=== PATIENT | female | born 1930 | race Caucasian/White ===

== ENCOUNTER 2017-02-02 14:40 | Emergency (ER) | payer MEDICARE, OTHER ==
[2017-02-02 15:19] LABS: Bilirubin Negative (Negative); Blood, Urine Negative (Negative); Glucose, Urine (Dipstick) Negative (Negative); Ketone, Urine Negative (Negative); Nitrite Negative (Negative); Protein, Urine (Dipstick) Negative (Neg-Trace)
[2017-02-02 15:22] LABS: #Basophils 0.1 thou/uL (0.0-0.2); #Eosinphils 0.3 thou/uL (0.0-0.7); #Lymphocytes 4.6 thou/uL (1.20-3.40); %Basophils 0.7 % (0.0-1.0); %Eosinophils 2.2 % (0.0-10.0); %Lymphocytes 38.3 % (21.0-51.0); %Monocytes 8.4 % (0.0-10.0); Hematocrit 44.5 % (36.0-47.0); Mean Platelet Volume 7.4 fL (7.4-10.4); Red Blood Cell (RBC) Count 4.47 mill/uL (4.20-5.40)
[2017-02-02 15:39] LABS: ALT (SGPT) 19 U/L (8-55); AST (SGOT) 26 U/L (5-34); Alkaline Phosphatase 75 U/L (40-150); Anion Gap 15 mmol/L (10-20); BUN (Urea Nitrogen) 16 mg/dL (9.8-20.1); CK (CPK) 36 U/L (29-168); Calc. Creatinine Clearance 0 mL/min (70-130); Carbon Dioxide 17 mmol/L (23-31); Chloride 109 mmol/L (98-107); Estimated GFR-MDRD 60; Globulin 3.3 g/dL (2.4-3.5); Protein, Total 6.8 g/dL (6.0-8.3)
[2017-02-02 15:57] LABS: Troponin I Less than 0.010 ng/mL (< 0.028)
--- NOTE | 2017-02-02 16:18 | CT ---
HEAD CT NONCONTRAST: Date: 02/02/17 INDICATION: Fall with head injury. FINDINGS: There is moderate chronic microvascular ischemic disease. Age-related parenchymal volume loss with co mpensatory dilatation of the ventricular system present. No intracranial hemorrhage, mass effect, or midline shift. Mild mucosal thickening of the paranasal sinuses. IMPRESSION: 1. No acute intracranial hemorrhage or mass effect. 2. Moderate chronic microvascular ischemic disease. POS: [facility]
--- NOTE | 2017-02-02 16:22 | CT ---
CERVICAL SPINE CT NONCONTRAST: Date: 02/02/17 CLINICAL HISTORY: Fall with neck injury and pain. FINDINGS: Craniocervical junction is intact. There is no compression fracture or significant subluxation. No ev idence of craniocervical distraction injury. There is patient motion which does distort imaging anato my and thus limit assessment. IMPRESSION: 1. No definite acute osseous abnormality of the cervical spine. 2. Incidental note of heterogeneity of the right thyroid lobe. [facility]. POS: [facility]
--- NOTE | 2017-02-02 16:23 | RAD ---
FRONTAL VIEW CHEST: Date: 02/02/17 INDICATION: Altered mental status, fall. COMPARISON: 04/14/15. FINDINGS: No consolidation, effusion, or pneumothorax. Cardiomediastinal silhouette is accentuated by slight pa tient rotation and portable technique. IMPRESSION: Stable chest. No consolidation identified. POS: [facility]
--- NOTE | 2017-02-02 16:41 | RAD ---
2 VIEWS RIGHT HIP: Date: 02/02/17 COMPARISON: None. HISTORY: Fall. FINDINGS: The bones are demineralized. No displaced fracture or evidence of dislocation is seen. IMPRESSION: No acute osseous abnormality. POS: [facility]
--- NOTE | 2017-02-02 16:45 | CT ---
CT FACIAL BONES: Date: 02/02/17 HISTORY: Fall, trauma, pain TECHNIQUE: Serial axial CT imaging at 2.5 mm intervals through the facial bones without contrast. Coronal and sa gittal reformatted imaging obtained. FINDINGS: The nasal bones appear intact. There is no fracture of the zygomatic arch or pterygoid plates on eith er side. The sphenoid sinus on the right is completely opacified and demonstrates prominent wall thickening wi th internal secretions demonstrating calcification. When compared to a head CT performed 02/12/16, th is is a stable finding, suggesting chronic sinusitis of the right sphenoid sinus. There is mild soft tissue swelling inferior and lateral to the left orbit, as well as along the super ior and lateral aspect of the left orbit. There is a rim calcified structure in the supraclinoid region on the left measuring approximately 1.2 cm in AP dimension, unchanged when compared to studies dating back to 12/21/05. This suggests an int racranial aneurysm. There is degenerative change involving the temporomandibular joints, particularly on the right, the r ight temporomandibular joint demonstrating prominent joint space narrowing, subchondral sclerosis, an d osteophyte formation, as well as small interarticular loose bodies. There is no acute fracture of t he mandible. The orbital floor and the medial orbital wall appears intact bilaterally. IMPRESSION: Numerous incidental findings as detailed above. No acute maxillofacial fracture or evidence of disloc ation. POS: [facility]
--- NOTE | 2017-02-02 16:48 | RAD ---
FRONTAL RADIOGRAPH OF PELVIS: Date: 02/02/17 COMPARISON: 12/09/05. HISTORY: Fall. FINDINGS: A metallic structure overlies the lower lumbar spine suggesting a metal weigher. Neither hip is dislocated. Pelvic ring is intact with no widening of the sacroiliac joints or pubic symphysis. No acute fracatu re. IMPRESSION: Incidental findings as above. No acute fracture or evidence of dislocation seen. POS: [facility]
[2017-02-02] MEDS ORDERED: Adacel (T-DAP) 0.5 ML VIAL ONE (18:00)
--- NOTE | 2017-02-22 10:43 | EKG ---
Test Reason : Blood Pressure : / mmHG Vent. Rate : 066 BPM Atrial Rate : 066 BPM P-R Int : 166 ms QRS Dur : 066 ms QT Int : 444 ms P-R-T Axes : 031 020 051 degrees QTc Int : 465 ms Normal sinus rhythm Normal ECG Confirmed by VIRGEN GARCIA M.D. ([id number]), production editor ZI MAY ([id number]) on 02/22/2017 10:42:50 AM Referred By: Confirmed By:VIRGEN GARCIA M.D.
== END 2017-02-02 18:21 | disposition home or self-care (01) ==
LOC: ERS 14:40
DX: S05.12XA Contusion of eyeball and orbital tissues, left eye, initial encounter (principal); F10.129 Alcohol abuse with intoxication, unspecified; E07.9 Disorder of thyroid, unspecified; I10 Essential (primary) hypertension; F41.9 Anxiety disorder, unspecified; F17.210 Nicotine dependence, cigarettes, uncomplicated; Z79.899 Other long term (current) drug therapy
CPT/HCPCS: 36415; 51701; 70450; 70486; 71010; 72125; 72170; 80053; 80307; 81003; 82550; 82553; 84484; 85025; 90471; 90715; 93005; 94760; A4353

== ENCOUNTER 2017-06-20 13:58 | Emergency (ER) | payer MEDICARE, OTHER ==
--- NOTE | 2017-06-20 14:53 | CT ---
CT HEAD NONCONTRAST: History: Fall. Head injury. FINDINGS: There is no evidence of acute intracranial hemorrhage or infarct. Ventricles appear normal in size, s hape, and position. Diffuse cortical atrophy and chronic ischemic small vessel disease are again demo nstrated. There is prominent calcification in the arterial structures. A large well circumscribed scalp hematoma over the right frontal calvarium measures up to 4.1 cm. No underlying skull fracture. IMPRESSION: 1. No acute intracranial abnormalities are demonstrated. POS: [facility]
--- NOTE | 2017-06-20 14:57 | CT ---
CT FACE NONCONTRAST: History: Fall. Head injury. FINDINGS: The mandible, globes, and zygomatic arches are intact. A small amount of fluid is noted within the le ft axillary sinus. Chronic inflammation and ostitis of the right sphenoid sinus is again demonstrated . Nasal septum is midline. Right frontal scalp hematoma is not visualized on this exam. No displaced fractures. Prominent degenerative changes involve the right temporomandibular joint. IMPRESSION: Chronic type findings are stable. No acute osseous abnormalities of the face are demonstrated. POS: [facility]
== END 2017-06-20 15:16 ==
LOC: ERS 13:58
DX: S00.03XA Contusion of scalp, initial encounter (principal); I10 Essential (primary) hypertension; F41.9 Anxiety disorder, unspecified; F17.210 Nicotine dependence, cigarettes, uncomplicated; Z79.82 Long term (current) use of aspirin; Z79.899 Other long term (current) drug therapy; W19.XXXA Unspecified fall, initial encounter
CPT/HCPCS: 70450; 70486

== ENCOUNTER 2018-03-19 21:58 | Inpatient (IN) | payer MEDICARE, OTHER ==
[~2018-03-19 21:58] MED LIST: ISOVUE-370 76%-LOCM 1 ML ONE
[2018-03-19 22:26] LABS: #Basophils 0.1 thou/uL (0.0-0.2); #Eosinphils 0.3 thou/uL (0.0-0.7); #Lymphocytes 3.3 thou/uL (1.20-3.40); #Neutrophils 6.4 thou/uL (1.40-6.50); %Basophils 0.9 % (0.0-1.0); %Eosinophils 2.4 % (0.0-10.0); %Lymphocytes 29.9 % (21.0-51.0); %Monocytes 9.3 % (0.0-10.0); %Neutrophils 57.5 % (42.0-75.0); Hemoglobin 14.4 g/dL (12.0-16.0); Mean Corpuscular HGB CONC 31.5 g/dL (32.0-36.0); Mean Corpuscular Hemoglobin 30.5 pg (27.0-31.0); Mean Corpuscular Volume 96.7 fL (78.0-98.0); Mean Platelet Volume 7.4 fL (7.4-10.4); Platelet Count 249 thou/uL (130-400); RBC Distribution Width 12.8 % (11.5-14.5); Red Blood Cell (RBC) Count 4.73 mill/uL (4.20-5.40); White Blood Cell (WBC) Count 11.2 thou/uL (4.8-10.8)
[2018-03-19 22:37] LABS: ALT (SGPT) 18 U/L (8-55); AST (SGOT) 22 U/L (5-34); Albumin 3.2 g/dL (3.4-4.8); Alkaline Phosphatase 99 U/L (40-150); Anion Gap 14 mmol/L (10-20); BUN (Urea Nitrogen) 21 mg/dL (9.8-20.1); Bilirubin, Total 0.9 mg/dL (0.2-1.2); CK (CPK) 27 U/L (29-168); Calc. Creatinine Clearance 0 mL/min (70-130); Calcium 8.8 mg/dL (7.8-10.44); Carbon Dioxide 20 mmol/L (23-31); Chloride 107 mmol/L (98-107); Estimated GFR-MDRD 52; Globulin 3.7 g/dL (2.4-3.5); Glucose 117 mg/dL (83-110); PTT 25.4 SEC (22.9-36.1); Potassium 3.8 mmol/L (3.5-5.1); Protein, Total 6.9 g/dL (6.0-8.3); Prothrombin Time 13.6 SEC (12.0-14.7); Sodium 137 mmol/L (136-145)
[2018-03-19 22:41] LABS: CKMB 0.6 ng/mL (0-6.6); Troponin I 0.137 ng/mL (< 0.028)
--- NOTE | 2018-03-19 23:23 | CT ---
CT OF THE HEAD WITHOUT CONTRAST: 03/19/18 COMPARISON: 06/20/17 HISTORY: Left sided facial droop and weakness, slurred speech. TECHNIQUE: Axial CT imaging at 5 mm intervals from vertex through skull base without contrast. FINDINGS: The imaged paranasal sinuses and mastoid air cells are well aerated. 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 There is extensive periventricular, deep, and subcortical white matter hypodensity, evidence of small vessel disease. No intracranial hemorrhage, midline shift or mass effect. No acute osseous abnormality is seen. IMPRESSION: No intracranial hemorrhage. Prominent small vessel disease. Results were called to Dr. Marcelo at approximately 10:09 p.m., 03/19/18. Code CR POS: [facility]
[2018-03-19] MEDS ORDERED: Aspirin 300 MG Suppository ONE (23:31)
--- NOTE | 2018-03-19 23:34 | PDOC.FPRHP ---
- History of Present Illness Chief Complaint: stroke alert History of Present Illness: 87 yo F w/ PMH HTN, CAD w/ 2 stents presented via EMS with daughter for sudden onset change in mental status, L sided weakness. Patient aphasic, responds to stimuli, does not follow commands. History obtained from daughter. Patient seemed normal with no complaints throughout the day then had sudden onset L sided weakness, speech deficit, after going to commode at about 21:40. Says patient started to have difficulty swallowing 3 weeks ago. This has progressively worsened, pt stopped taking all medications and solid foods 10 days ago. Mrs. Holland loves ensure with chocolate. At baseline Ms. Holland is able to walk with assist to toilet, blind. She has had gradual decline after deaths of family members over past 6 years, but especially over past year. October had significant decline in which she became combative with worsening confusion, dementia. Stopped smoking cigarettes and refused coffee which she previously enjoyed. ED Course: IN aspirin - Allergies/Adverse Reactions Allergies Allergy/AdvReac Type Severity Reaction Status Date / Time No Known Drug Allergies Allergy Verified 04/14/15 21:05 - Home Medications Medication Instructions Recorded Confirmed Type Aspirin [Aspirin Chewable Tablet] 81 mg PO DAILY 04/14/15 03/20/18 History Carvedilol 12.5 mg PO BID 04/14/15 03/20/18 History Pravastatin Sodium 40 mg PO HS 04/14/15 03/20/18 History Cyanocobalamin (Vitamin B-12) 5,000 mcg PO DAILY 03/20/18 03/20/18 History [Vitamin B-12] Ferrous Sulfate 325 mg PO DAILY 03/20/18 03/20/18 History - History PMHx: HTN, dementia, macular degeneration w/ blindness x20 years, CAD s/p stents x2 PSHx: colonoscopy w/perf requiring colon resection, stents, hysterectomy, back surgery, cataracts FHx: Lives with daughter at home Social: No current tobacco, alcohol, drug use. Previous smoker, stopped 11/11. - Review of Systems ROS unobtainable: due to mental status - Vital signs BP: 131/91 HR: 101 RR: 27 Tmax: 98.3 Pox: 90% on RA Wt: 53 kg - Physical Exam Constitutional: other (aphasic, does not follow commands, sleeping and snoring. Responds to stimulus.) HEENT: normocephalic and atraumatic Neck: supple, other (carotids difficult to auscultate 2/2 snoring) Heart: RRR, no murmurs/rubs/gallops, pulses present, no edema Lungs: CTAB (exam limited by snoring) Abdomen: soft, bowel sounds present, no masses/distention Musculoskeletal: normal structure (thin) Neurological: other (L sided facial droop, normal babinski, moves b/l feet and toes. R arm/hand resisted movement. No LUE movement seen.) Skin: no rash/lesions FMR H&P: Results - Labs Result Diagrams: 03/20/18 04:24 03/20/18 04:24 Lab results: WBC 11.2 thou/uL (4.8-10.8) H 03/19/18 22:10 Hgb 14.4 g/dL (12.0-16.0) 03/19/18 22:10 Hct 45.7 % (36.0-47.0) 03/19/18 22:10 MCV 96.7 fL (78.0-98.0) 03/19/18 22:10 Plt Count 249 thou/uL (130-400) 03/19/18 22:10 Neutrophils % 57.5 % (42.0-75.0) 03/19/18 22:10 Sodium 137 mmol/L (136-145) 03/19/18 22:10 Potassium 3.8 mmol/L (3.5-5.1) 03/19/18 22:10 Chloride 107 mmol/L (98-107) 03/19/18 22:10 Carbon Dioxide 20 mmol/L (23-31) L 03/19/18 22:10 BUN 21 mg/dL (9.8-20.1) H 03/19/18 22:10 Creatinine 1.01 mg/dL (0.6-1.1) 03/19/18 22:10 Glucose 117 mg/dL (83-110) H 03/19/18 22:10 Calcium 8.8 mg/dL (7.8-10.44) 03/19/18 22:10 Total Bilirubin 0.9 mg/dL (0.2-1.2) 03/19/18 22:10 AST 22 U/L (5-34) 03/19/18 22:10 ALT 18 U/L (8-55) 03/19/18 22:10 Alkaline Phosphatase 99 U/L (40-150) 03/19/18 22:10 Creatine Kinase 27 U/L (29-168) L 03/19/18 22:10 CK-MB (CK-2) 0.6 ng/mL (0-6.6) 03/19/18 22:10 Serum Total Protein 6.9 g/dL (6.0-8.3) 03/19/18 22:10 Albumin 3.2 g/dL (3.4-4.8) L 03/19/18 22:10 FMR H&P: A/P - Problem List (1) Acute thrombotic stroke Current Visit: Yes Status: Acute Code(s): [id number] - (2) Elevated troponin Current Visit: Yes Status: Acute Code(s): R74.8 - ABNORMAL LEVELS OF OTHER SERUM ENZYMES (3) HTN (hypertension) Current Visit: No Status: Acute Code(s): I10 - ESSENTIAL (PRIMARY) HYPERTENSION (4) Blindness of both eyes Current Visit: No Status: Chronic Code(s): H54.0 - BLINDNESS, BOTH EYES * DO NOT USE * (5) Dementia Current Visit: No Status: Suspected Code(s): F03.90 - UNSPECIFIED DEMENTIA WITHOUT BEHAVIORAL DISTURBANCE Qualifiers: Dementia type: Alzheimer's disease Alzheimer's disease onset: late-onset Dementia behavioral disturbance: without behavioral disturbance Qualified Code (s): G30.1 - Alzheimer's disease with late onset; F02.80 - Dementia in other diseases classified elsewhere without behavioral disturbance - Plan Acute Thrombotic Stroke - CT brain showed no intracranial hemorrhage, small vessel disease, L ICA aneurysm - CTA showed distal R ICA arterial thrombus w/ filling defect extending to R SHERIFFS. Thyroid nodule. - Risks include CAD s/p stents, previous tobacco abuse - Allow permissive HTN, BP 210/110. BP was 130 systolic in ED - IN aspirin. NPO pending speech evaluation. Plan to start statin after this. - Neuro checks, fall precautions - PT/OT/speech consults - Palliative care consult placed to assist with goals of care - Plan to consult neurology in am - MRI in am pending - echo pending - IVF, LR @ maintenance - Daughter MPOA to come in am. She has advanced directive paperwork. Indeterminate troponins, likely 2/2 demand - EKG NSR, no ST changes - 0.137->0.127. Will trend one more HTN - hold home BP med, allow permissive HTN CAD s/p stents - NPO, plan to start statin Blindness 2/2 macular degeneration Ppx: Lovenox Diet: NPO pending swallow eval Dispo: admit to inpatient stroke FMR H&P: Upper Level - Pertinent history 87 y/o F w/ PMHx of HLD, HTN, and prior CVA presents for evaluation of acute onset of L-sided weakness, facial droop, and slurred speech around 1730 earlier tonight. Pt lives at home w/ daughter who takes care of her. Per daughter, patient is able to get out of bed and ambulate to toilet w/ stand-by assist and is blind 2/2 macular degeneration at her baseline. Reports difficulty swallowing over the past 3 weeks. Daughter reports patient stopped taking her home meds about 10 days ago and reports significantly decreased PO intake 2/2 choking on solids/pills. Was taking some liquid. CT brain upon arrival to the ER negative for hemorrhagic stroke and CTA Head/Neck showing clot near the bifurcation of the internal and external carotid artery. Dr Blanca of Neurosurgery contacted by the ER and advised against tPA administration cv thrombus retrieval as patient is not a good candidate for either intervention. Pt received ASA in the ER. - Pertinent findings BP 129/96 P 102 RR 24 O2sat 92% on RA Weight [address] Brain WO - Prominent small vessel disease. No intracranial hemorrhage CTA- Head/Neck - WBC - 11.2 Hbg - 14.4 Plt - 249 Trop - .137 GEN: Frail, laying in bed, snoring, no acute distress HEENT: L-sided facial droop. No noted contusions. Normocephalic CARD: Tachycadic, no murmurs PULM: CTA-b/l, no wheezes or rhonci GI: BSx4, soft, no guarding NEURO: Pt aphasic, left sided facial droop, Minimal movement of L-UE, 2/5 strength L-LE. Unable to perform sensory exam - Plan Date/Time: 03/19/18 [id number] I, B. Kade cShultz MD, have evaluated this patient and agree with findings/plan as outlined by customer experience intern resident. Pertinent changes/additions are listed here. 87 y/o F w/: 1) Acute thrombotic stroke w/ clot noted at carotid artery bifurcation - Pt not a good candidate for tPA or retrieval per Dr. Blanca Neurosurgery - Thrombus identified at the bifurcation of the internal/external carotid artery , but with residual blood flow per discussion w/ Dr. Blanca by ERMD. Unsure at this time if this is stimulus for sxs or if part of this thrombus broke off and caused ischemia as her sxs appear to be more focal to the L-UE and face rather than gross L-sided deficits as would be expected for complete ischemia of the L- hemisphere. - Will obtain MRI brain w/wo for further eval of this in the AM - Will start patient on Aspirin and high intensity statin. NPO pending clearance by speech - IVF at [facility] - Neuro checks q4 hours w/ PT/OT consultation - Allow permissive HTN for the first 24 hours to aid w/ brain tissue reperfusion w/ PRN available if >220/110 - Will consult CM for placement vs palliative upon discharge home - Will admit to Stroke inpatient for further eval/work-up and consult Neuro in the AM - Will attempt to contact other daughter who is patient's Medical power of attorney recruiter - ECHO to eval for intracardiac thrombus as possible primary site of thrombus w / thrombus seen at bifurcation in elderly patient at high risk for atrial fibrillation 2) Indeterminate Trop likely 2/2 demand ischemia - Will trend trop x 3 - No evidence of acute myocardial ischemia seen on EKG - Likely 2/2 demand in setting of number 1 - ASA as noted above and high intensity statin - ECHO as noted above - Will consult Cards if trops cont. to trend upward 3) Other chronic problems per customer experience intern note Assessment and Plan Discussed w/ Dr. Tillman who is in agreement. Addendum - Attending - Attending Attestation Date/Time: 03/20/18 0028 I personally evaluated the patient and discussed the management with Dr. Beyer and Dr. Schultz I agree with the History, Examination, Assessment and Plan documented above with any addition or exceptions noted below. 87 yo female presented with left side weakness. Imaging confirmed thrombotic CVA. Will admit to stoke unit. Consult stroke team and case management. Continue secondary prevention. Neuro surg consulted from ER. Did not recommend TPA or other clot removing interventions. Jeannette
--- NOTE | 2018-03-19 23:52 | RAD ---
PORTABLE SEMIUPRIGHT FRONTAL CHEST RADIOGRAPH 03/19/18 COMPARISON: 02/02/17 HISTORY: Left sided weakness with spurred speech. FINDINGS: The heart and mediastinal contours are stable. No pneumothorax, pleural fluid, focal consolidation, o r alveolar edema. IMPRESSION: No acute findings. POS: [facility]
--- NOTE | 2018-03-20 00:37 | CT ---
CT ANGIOGRAM HEAD CT ANGIOGRAM NECK 03/19/18 COMPARISON: None. HISTORY: Left sided facial droop and weakness with slurred speech. TECHNIQUE: Axial CT imaging is obtained at 1.25 mm intervals from the vertex through the lung apices with IV con trast using a CT angiogram protocol. Coronal and sagittal 3D reformatted imaging obtained. FINDINGS: The visualized lung apices are unremarkable. The retroantral fat and the parapharyngeal fat is clear bilaterally. The parotid glands and the subma ndibular glands are unremarkable. No discrete aerodigestive tract lesion identified. There is a levi nant nodule in the right lobe of the thyroid gland measuring approximately 1.9 cm. Followup thyroid u ltrasound suggested. No lymphadenopathy is appreciated within the neck. There is a bovine arch noted. There is atherosclerotic calcification at the origin of the left subcla vian artery. There is no hemodynamically significant stenosis at the origin of the innominate artery, right subclavian artery, right vertebral artery, right common carotid artery, left common carotid a rtery, left subclavian artery, or left vertebral artery. On the basis of NASCET criteria there is no hemodynamically significant stenosis seen involving the c ommon carotid artery or the internal carotid artery on either side. The vertebral arteries are patent bilaterally. The basilar artery is patent. Bilateral posterior cerebral arteries are patent distally. Of note, there is clot within the posterio r communicating artery on the right. This is incontinuity with clot/thrombus within the distal ICA on the right just proximal to the bifurcation of the ICA, best seen on coronal image 53, axial image 20 5, and sagittal image 53. There is no clot seen extending into the M1 segment on the right and the di stal MCA branches appear grossly unremarkable. The A1 segment is patent bilaterally and distal LEONELA br anches are unremarkable. There is a saccular aneurysm measuring 1.3 cm emanating from the lateral asp ect of the left internal carotid artery involving the cavernous segment. Distal LEONELA and MCA branches appear unremarkable bilaterally. Review of the osseous structures demonstrates multilevel facet and uncovertebral osteophyte formation within the cervical spine. IMPRESSION: 1. Filling defect consistent with arterial thrombus within the distal right internal carotid art alonzo just proximal to the ICA terminus. This extends into the posterior communicating artery on the ri ght as well. 2. 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 3. Nodule within the right lobe of the thyroid gland for which followup thyroid ultrasound advi sed. Results discussed with Dr. Marcelo at 10:35 p.m., 03/19/18. Code CR POS: [facility]
[2018-03-20] MEDS: Lactated Ringer's 1,000 ML IV SCH ×2 (03:05→18:05)
[2018-03-20 03:31] VITALS: BMI 22.4
[2018-03-20 05:11] LABS: #Basophils 0.1 thou/uL (0.0-0.2); #Eosinphils 0.2 thou/uL (0.0-0.7); #Lymphocytes 3.2 thou/uL (1.20-3.40); #Neutrophils 7.4 thou/uL (1.40-6.50); %Basophils 0.5 % (0.0-1.0); %Eosinophils 1.8 % (0.0-10.0); %Lymphocytes 26.8 % (21.0-51.0); %Monocytes 8.6 % (0.0-10.0); %Neutrophils 62.2 % (42.0-75.0); Hemoglobin 14.2 g/dL (12.0-16.0); Mean Corpuscular HGB CONC 31.7 g/dL (32.0-36.0); Mean Corpuscular Hemoglobin 30.8 pg (27.0-31.0); Mean Corpuscular Volume 96.9 fL (78.0-98.0); Mean Platelet Volume 7.5 fL (7.4-10.4); Platelet Count 257 thou/uL (130-400); RBC Distribution Width 12.8 % (11.5-14.5); White Blood Cell (WBC) Count 11.9 thou/uL (4.8-10.8)
[2018-03-20 05:36] LABS: Anion Gap 14 mmol/L (10-20); BUN (Urea Nitrogen) 19 mg/dL (9.8-20.1); Calc. Creatinine Clearance 34 mL/min (70-130); Calcium 9.4 mg/dL (7.8-10.44); Carbon Dioxide 22 mmol/L (23-31); Cardiac Risk 2.9 (Less than 4.5); Chloride 104 mmol/L (98-107); Cholesterol 110 mg/dl (< 200 Desired); Estimated GFR-MDRD 52; Glucose 107 mg/dL (83-110); HDL Cholesterol 38 mg/dL (>60 Neg Risk); LDL Cholesterol, Calculated 55 mg/dL; Potassium 3.6 mmol/L (3.5-5.1); Sodium 136 mmol/L (136-145); Triglycerides 85 mg/dL (Less than 150)
[2018-03-20 05:54] LABS: CKMB 0.9 ng/mL (0-6.6)
--- NOTE | 2018-03-20 06:59 | PDOC.FM ---
- Subjective Subjective: NAEO. Patient resting in bed, currently getting TTE. Daughter at the bedside. States her mother has rested most of the night. Notes she has declined steadily since October. She states she does not feel she would be able to take her mother home to care for her after this event. Patient resting in bed and not able to answer questions. Daughter states her sister is coming later this AM and she is MPOA, she is bringing paperwork. - Objective MAR Reviewed: Yes Vital Signs & Weight: Vital Signs (12 hours) Temp Pulse Resp BP 03/20/18 02:23 98.0 F 95 16 126/95 H Weight Weight 55.792 kg Result Diagrams: 03/20/18 04:24 03/20/18 04:24 Phys Exam - Physical Examination Constitutional: NAD resting on bed, lethargic, responds to painful stimuli follows commands, but minimally HEENT: moist MMs, sclera anicteric Respiratory: clear to auscultation bilateral Cardiovascular: RRR Gastrointestinal: soft, non-tender unable to fully assess due to patient cooperation spontaneously moved RLE Deviation from normal: incomprehensible sounds Dx/Plan (1) Acute thrombotic stroke Code(s): [id number] - Status: Acute (2) Elevated troponin Code(s): R74.8 - ABNORMAL LEVELS OF OTHER SERUM ENZYMES Status: Acute (3) Alcohol abuse Code(s): F10.10 - ALCOHOL ABUSE, UNCOMPLICATED Status: Acute (4) Altered mental state Code(s): R41.82 - ALTERED MENTAL STATUS, UNSPECIFIED Status: Acute (5) HTN (hypertension) Code(s): I10 - ESSENTIAL (PRIMARY) HYPERTENSION Status: Acute (6) Blindness of both eyes Code(s): H54.0 - BLINDNESS, BOTH EYES * DO NOT USE * Status: Chronic (7) Dementia Code(s): F03.90 - UNSPECIFIED DEMENTIA WITHOUT BEHAVIORAL DISTURBANCE Status: Suspected Qualifiers: Dementia type: Alzheimer's disease Alzheimer's disease onset: late-onset Dementia behavioral disturbance: without behavioral disturbance Qualified Code (s): G30.1 - Alzheimer's disease with late onset; F02.80 - Dementia in other diseases classified elsewhere without behavioral disturbance - Plan Plan: Acute Thrombotic Stroke - CT brain showed no intracranial hemorrhage, small vessel disease, L ICA aneurysm - CTA showed distal R ICA arterial thrombus w/ filling defect extending to R PLUMBING INSPECTOR. Thyroid nodule. - Risks include CAD s/p stents, previous tobacco abuse - Allow permissive HTN, BP 210/110. BP was 130 systolic in ED - [place] aspirin. NPO pending speech evaluation. Plan to start statin after this. - Neuro checks, fall precautions - PT/OT/speech consults - Palliative care consult placed to assist with goals of care; CM consulted for discharge planning - Plan to consult neurology in am - MRI in am pending - echo pending - IVF, LR @ maintenance - Daughter MPOA to come in am. She has advanced directive paperwork. Indeterminate troponins, likely 2/2 demand - EKG NSR, no ST changes - 0.137->0.127-> 0.134 HTN - hold home BP med, allow permissive HTN CAD s/p stents - NPO, plan to start statin Blindness 2/2 macular degeneration Ppx: Lovenox Diet: NPO pending swallow eval Dispo: admit to inpatient stroke Addendum - Attending - Attending Attestation Date/Time: 03/20/18 [id number] I personally evaluated the patient and discussed the management with Dr. Brown. TUSHAR 02/28, LLE 0/ I agree with the History, Examination, Assessment and Plan documented above with any addition or exceptions noted below. Acute ischemic stroke-confirmed by MRI-patient has had steady decline per daughters report. on pr aspirin. PT/OT/ST. Will see how patient progresses over the next 24-48 hours and continue to dialogue with children about plan. They decline PEG tube for sure and are thinking placement in NH as most suitable plan of care. Permissive HTN
[2018-03-20] MEDS: Enoxaparin Sodium 40 MG/0.4 ML SYRINGE SC SCH (09:30)
[2018-03-20] MEDS: Aspirin 300 MG Suppository PR SCH (09:30)
[2018-03-20] MEDS ORDERED: Acetaminophen 500 MG TAB PO PRN (13:14)
[2018-03-20] MEDS ORDERED: Haloperidol Lactate 5 MG/ML VIAL SLOW IVP PRN (13:48)
--- NOTE | 2018-03-20 15:34 | MRI ---
BRAIN MRI WITHOUT CONTRAST: INDICATION: History of stroke with left side weakness and facial droop. Slurred speech. FINDINGS: Patient motion is present degrading image quality. There is acute right COATER OPERATOR distribution moderate-sized infarction which involves the occipital lobe inf erior and medial right temporal lobe and the right thalamus. There is also punctate restriction invo lving the left paramedian yadiel, areas of restriction of the left cerebral hemisphere in a watershed d istribution, and a few are seen within the left cerebellar hemisphere. There is severe chronic ische denis disease involving cerebral white matter. There is encephalomalacia of the inferolateral right ce rebellar hemisphere in addition to multifocal bilateral lacunar infarctions of the cerebellar hemisph eres. There is dolichoectasia of each visualized terminal ICA as evidenced by enlargement of the sheila w voids. [place] intraarticular lenses are absent. There is abnormal opacification of the right melissa r sphenoid air cell. Mild mucosal thickening is otherwise seen within the paranasal sinuses. IMPRESSION: 1. Moderate-sized acute right COATER OPERATOR distribution infarction. 2. Additional punctate foci of restricted diffusion which may relate to tiny recent infarcts from hy poperfusion or embolic phenomenon. 3. Additional details are described above. POS: TPC
[2018-03-21 04:57] LABS: #Basophils 0.1 thou/uL (0.0-0.2); #Eosinphils 0.2 thou/uL (0.0-0.7); #Lymphocytes 2.7 thou/uL (1.20-3.40); #Monocytes 0.9 thou/uL (0.11-0.59); #Neutrophils 6.4 thou/uL (1.40-6.50); %Basophils 0.6 % (0.0-1.0); %Eosinophils 2.1 % (0.0-10.0); %Lymphocytes 26.8 % (21.0-51.0); %Monocytes 8.4 % (0.0-10.0); %Neutrophils 62.1 % (42.0-75.0); Mean Corpuscular HGB CONC 31.9 g/dL (32.0-36.0); Mean Corpuscular Hemoglobin 30.3 pg (27.0-31.0); Mean Platelet Volume 7.9 fL (7.4-10.4); Platelet Count 253 thou/uL (130-400); RBC Distribution Width 12.8 % (11.5-14.5); Red Blood Cell (RBC) Count 4.64 mill/uL (4.20-5.40); White Blood Cell (WBC) Count 10.2 thou/uL (4.8-10.8)
[2018-03-21] MEDS: Lactated Ringer's 1,000 ML IV SCH (04:57)
[2018-03-21 05:10] LABS: Anion Gap 16 mmol/L (10-20); BUN (Urea Nitrogen) 13 mg/dL (9.8-20.1); Calc. Creatinine Clearance 38 mL/min (70-130); Carbon Dioxide 21 mmol/L (23-31); Chloride 106 mmol/L (98-107); Estimated GFR-MDRD 60; Glucose 90 mg/dL (83-110); Potassium 3.8 mmol/L (3.5-5.1); Sodium 139 mmol/L (136-145)
--- NOTE | 2018-03-21 06:11 | PDOC.FM ---
- Subjective Subjective: NAEO. Patient resting comfortably in bed. No family at the bedside. Patient makes incomprehensible sounds but unable to answer questions appropriately. - Objective MAR Reviewed: Yes Vital Signs & Weight: Vital Signs (12 hours) Temp Pulse Resp BP Pulse Ox 03/21/18 04:00 98.7 F 83 19 97 03/21/18 03:26 158/100 H 03/21/18 03:25 168/112 H 03/21/18 00:00 98.4 F 89 19 138/98 H 97 03/20/18 20:00 98.6 F 102 H 20 141/78 H 97 Weight Admit Weight 55.792 kg Weight 55.792 kg I&O: 03/19/18 03/20/18 03/21/18 06:59 06:59 06:59 Intake Total 1868 Output Total 550 Balance 1318 Result Diagrams: 03/21/18 04:15 03/21/18 04:15 Phys Exam - Physical Examination Constitutional: NAD HEENT: PERRLA, moist MMs, sclera anicteric Neck: supple, full ROM Respiratory: clear to auscultation bilateral Cardiovascular: RRR Gastrointestinal: soft, non-tender, no distention, positive bowel sounds Musculoskeletal: no edema left sided weakness, follows commands, incomprehensible sounds Dx/Plan (1) Acute thrombotic stroke Code(s): [id number] - Status: Acute (2) Elevated troponin Code(s): R74.8 - ABNORMAL LEVELS OF OTHER SERUM ENZYMES Status: Acute (3) Alcohol abuse Code(s): F10.10 - ALCOHOL ABUSE, UNCOMPLICATED Status: Acute (4) Altered mental state Code(s): R41.82 - ALTERED MENTAL STATUS, UNSPECIFIED Status: Acute (5) HTN (hypertension) Code(s): I10 - ESSENTIAL (PRIMARY) HYPERTENSION Status: Acute (6) Blindness of both eyes Code(s): H54.0 - BLINDNESS, BOTH EYES * DO NOT USE * Status: Chronic (7) Dementia Code(s): F03.90 - UNSPECIFIED DEMENTIA WITHOUT BEHAVIORAL DISTURBANCE Status: Suspected Qualifiers: Dementia type: Alzheimer's disease Alzheimer's disease onset: late-onset Dementia behavioral disturbance: without behavioral disturbance Qualified Code (s): G30.1 - Alzheimer's disease with late onset; F02.80 - Dementia in other diseases classified elsewhere without behavioral disturbance - Plan Plan: Acute Thrombotic Stroke - CT brain showed no intracranial hemorrhage, small vessel disease, L ICA aneurysm - CTA showed distal R ICA arterial thrombus w/ filling defect extending to R PATROL MAN. Thyroid nodule. - Risks include CAD s/p stents, previous tobacco abuse - Allow permissive HTN, BP 210/110. BP was 130 systolic in ED - AR aspirin. Speech consulted and appreciate recommendations. - Neuro checks, fall precautions - PT/OT/speech consults - MRI showing infarct affecting right PATROL MAN - Echo: EF 55-60%, grade 1/3 diastolic dysfunction; mitral annular calcification , mild MR, aortic valve sclerosis, mild TR, small pericardial effusion w/out tamponade - Palliative care consult placed to assist with goals of care- after discussion family decided to make patient DNR and a referral has been placed for [facility]. Family has decided to pursue comfort measures. - Neurology consulted - no intervention at this time. Appreciate recommendataions. Indeterminate troponins, likely 2/2 demand - EKG NSR, no ST changes - 0.137->0.127-> 0.134 HTN - hold home BP med, permissive HTN period allowed CAD s/p stents - will discuss statin therapy with family Blindness 2/2 macular degeneration Ppx: Lovenox Dispo: discharge within 1-2 days Addendum - Attending - Attending Attestation Date/Time: 03/21/182049 I personally evaluated the patient and discussed the management with Dr. Brown I agree with the History, Examination, Assessment and Plan documented above with any addition or exceptions noted below. Acute ischemic stroke- family on board with DNR and comfort measures. Hospice consulted.
[2018-03-21] MEDS: Enoxaparin Sodium 40 MG/0.4 ML SYRINGE SC SCH (09:55)
[2018-03-21] MEDS: Aspirin 300 MG Suppository PR SCH (09:55)
--- NOTE | 2018-03-21 10:24 | CON ---
DATE OF CONSULTATION: 03/21/2018 TYPE OF CONSULTATION: Neurology. CONSULT PHYSICIAN: Family Medicine Service. IMPRESSION: 1. Right posterior cerebral artery stroke. 2. Moderately advanced dementia. PLAN: Hospice care. HISTORY OF PRESENT ILLNESS: Ms. Holland is an 87-year-old white female, who lives at home with the assistance of her daughter. She has had progressive dementia for several years. She is still able to eat, drink, and walk with assistance. She had an acute neurologic change, where there was some weakness that developed on the left side and what the daughter describes as a stiffening of her extremities. Following this, she was brought to the emergency room for evaluation. She has since had an MRI of the brain, which showed extensive small vessel ischemic changes as well as a fairly large area of infarct involving the right temporal and occipital lobe. The patient reportedly will awake and if stimulated and becomes agitated. She is otherwise been stable from a cardiovascular perspective. She had a living will that she did not want any type of feeding tube. PAST MEDICAL HISTORY: Hypertension, hyperlipidemia, and cerebral aneurysm. ALLERGIES: NONE REPORTED. SOCIAL HISTORY: No tobacco or alcohol. MEDICATIONS: Medication list was reviewed. FAMILY HISTORY: Noncontributory. REVIEW OF SYSTEMS: Not obtainable due to her current state. PHYSICAL EXAMINATION: VITAL SIGNS: Blood pressure 135/99, pulse 88, respirations 16, and temperature 97.4. HEENT: Pupils equal. Conjunctivae clear. NECK: Supple. No lymphadenopathy. EXTREMITIES: No cyanosis, clubbing, or edema. NEUROLOGIC: She is quite lethargic, but will arouse to stimulation. She does not follow commands. There is no obvious focal changes as far as muscular tone. No abnormal movements were seen. LABORATORY STUDIES: Glucoses have been running around 100. CBC shows a white blood cell count 10.2 and hemoglobin 14.0. Echocardiogram showed an ejection fraction of 55% to 60%. MRI images were reviewed. CT angiogram showed an occlusion of the distal right ICA and posterior communicator artery. SUMMARY: This is an elderly lady with dementia and a fairly large infarct. Family wishes for comfort measures. I agree with your current care. Job ID: [id number]
--- NOTE | 2018-03-21 23:03 | EKG ---
Test Reason : Blood Pressure : / mmHG Vent. Rate : 092 BPM Atrial Rate : 092 BPM P-R Int : 156 ms QRS Dur : 058 ms QT Int : 386 ms P-R-T Axes : 073 021 051 degrees QTc Int : 477 ms Normal sinus rhythm Nonspecific ST abnormality Abnormal ECG Confirmed by DEBBIE LAWRENCE, SWATHI ([id number]), scientific publications editor ZI MAY ([id number]) on 03/21/2018 11:03:15 PM Referred By: Confirmed By:SWATHI LEWIS MD
--- NOTE | 2018-03-22 06:10 | PDOC.FM ---
- Subjective Subjective: NAEO. Patient resting in bed. Patient is making incomprehensible sounds, but is able to answer questions somewhat appropriately. She does endorse some back and hip pain. She is not alert or oriented. She denies any other pain. - Objective MAR Reviewed: Yes Vital Signs & Weight: Vital Signs (12 hours) Temp Pulse Resp BP Pulse Ox 03/22/18 04:00 99.6 F 90 20 142/96 H 93 L 03/21/18 19:30 97.7 F 93 18 135/90 94 L Weight Admit Weight 55.792 kg Weight 55.792 kg I&O: 03/20/18 03/21/18 03/22/18 06:59 06:59 06:59 Intake Total 1868 Output Total 550 250 Balance 1318 -250 Result Diagrams: 03/21/18 04:15 03/21/18 04:15 Phys Exam - Physical Examination elderly female Neck: supple Respiratory: no wheezing Cardiovascular: RRR Gastrointestinal: soft, non-tender, no distention, positive bowel sounds Musculoskeletal: no edema Left sided weakness remains; right sided strength intact Deviation from normal: incomprehensible sounds, able to follow some commands and answer questions Dx/Plan (1) Acute thrombotic stroke Code(s): [id number] - Status: Acute (2) Elevated troponin Code(s): R74.8 - ABNORMAL LEVELS OF OTHER SERUM ENZYMES Status: Acute (3) Alcohol abuse Code(s): F10.10 - ALCOHOL ABUSE, UNCOMPLICATED Status: Acute (4) Altered mental state Code(s): R41.82 - ALTERED MENTAL STATUS, UNSPECIFIED Status: Acute (5) HTN (hypertension) Code(s): I10 - ESSENTIAL (PRIMARY) HYPERTENSION Status: Acute (6) Blindness of both eyes Code(s): H54.0 - BLINDNESS, BOTH EYES * DO NOT USE * Status: Chronic (7) Dementia Code(s): F03.90 - UNSPECIFIED DEMENTIA WITHOUT BEHAVIORAL DISTURBANCE Status: Suspected Qualifiers: Dementia type: Alzheimer's disease Alzheimer's disease onset: late-onset Dementia behavioral disturbance: without behavioral disturbance Qualified Code (s): G30.1 - Alzheimer's disease with late onset; F02.80 - Dementia in other diseases classified elsewhere without behavioral disturbance - Plan Plan: Acute Thrombotic Stroke - CT brain showed no intracranial hemorrhage, small vessel disease, L ICA aneurysm - CTA showed distal R ICA arterial thrombus w/ filling defect extending to R KEY ACCOUNT COORDINATOR. Thyroid nodule. - [place] aspirin. Speech consulted and appreciate recommendations. - Neuro checks, fall precautions - PT/OT/speech consults - MRI showing infarct affecting right KEY ACCOUNT COORDINATOR - Echo: EF 55-60%, grade 1/3 diastolic dysfunction; mitral annular calcification , mild MR, aortic valve sclerosis, mild TR, small pericardial effusion w/out tamponade - Palliative care consult placed to assist with goals of care- after discussion family decided to make patient DNR and a referral has been placed for [facility]. Family has decided to pursue comfort measures. Patient not a candidate for inpatient hospice. Family would like to do correction hospice. Will give one dose of morphine due to patient complaining of back pain while we await hospice recs. - Neurology consulted - agrees with current management. Appreciate recommendataions. Indeterminate troponins, likely 2/2 demand - EKG NSR, no ST changes - 0.137->0.127-> 0.134 HTN - hold home BP med, permissive HTN period allowed CAD s/p stents - comfort measures, no statin at this time Blindness 2/2 macular degeneration Ppx: Lovenox Dispo: pending placement for NH Hospice Addendum - Attending - Attending Attestation Date/Time: 03/22/18 4514 I personally evaluated the patient at 1025 am and discussed the management with Dr. Brown I agree with the History, Examination, Assessment and Plan documented above with any addition or exceptions noted below. Awaiting NH placement for hospice care.
[2018-03-22] MEDS ORDERED: Morphine 4 MG/ML VIAL SLOW IVP SCH (07:30)
[2018-03-22] MEDS: Enoxaparin Sodium 40 MG/0.4 ML SYRINGE SC SCH (09:07)
[2018-03-22] MEDS: Aspirin 300 MG Suppository PR SCH (09:07)
[2018-03-22] MEDS ORDERED: Morphine 10 MG/0.5 ML ORAL SYRINGE SL PRN (10:55)
--- NOTE | 2018-03-23 05:32 | PDOC.FM ---
Addendum entered and electronically signed by Belia Lala MD 03/23/18 09:28 : A&P for CVA: Will continue PRN tylenol & morphine for pain control. Original Note: - Subjective Subjective: NAEO. Patient responding appropriately but not all answers are comprehendible. Did answer ok and yes to pain but unable to determine where she was having pain. Followed some commands. - Objective MAR Reviewed: Yes Vital Signs & Weight: Vital Signs (12 hours) Temp Pulse Resp BP Pulse Ox 03/23/18 00:00 99.0 F 97 22 H 174/100 H 95 03/22/18 20:00 154/105 H 95 Weight Admit Weight 55.792 kg Weight 55.792 kg I&O: 03/21/18 03/22/18 03/23/18 06:59 06:59 06:59 Intake Total 1868 Output Total 550 250 Balance 1318 -250 Result Diagrams: 03/21/18 04:15 03/21/18 04:15 Phys Exam - Physical Examination Constitutional: NAD HEENT: moist MMs Neck: supple, full ROM Respiratory: no wheezing, no rales, no rhonchi, clear to auscultation bilateral Cardiovascular: RRR, no significant murmur Gastrointestinal: positive bowel sounds Musculoskeletal: no edema, pulses present unable to move left arm or leg Deviation from normal: unable to assess 2/2 dysarthria Skin: no rash, normal turgor Dx/Plan (1) Acute thrombotic stroke Code(s): [id number] - Status: Acute (2) Elevated troponin Code(s): R74.8 - ABNORMAL LEVELS OF OTHER SERUM ENZYMES Status: Acute (3) Alcohol abuse Code(s): F10.10 - ALCOHOL ABUSE, UNCOMPLICATED Status: Acute (4) Altered mental state Code(s): R41.82 - ALTERED MENTAL STATUS, UNSPECIFIED Status: Acute (5) HTN (hypertension) Code(s): I10 - ESSENTIAL (PRIMARY) HYPERTENSION Status: Acute (6) Blindness of both eyes Code(s): H54.0 - BLINDNESS, BOTH EYES * DO NOT USE * Status: Chronic (7) Dementia Code(s): F03.90 - UNSPECIFIED DEMENTIA WITHOUT BEHAVIORAL DISTURBANCE Status: Suspected Qualifiers: Dementia type: Alzheimer's disease Alzheimer's disease onset: late-onset Dementia behavioral disturbance: without behavioral disturbance Qualified Code (s): G30.1 - Alzheimer's disease with late onset; F02.80 - Dementia in other diseases classified elsewhere without behavioral disturbance - Plan Plan: 87YOF s/p an acute ischemic left ICA CVA with severe L-sided deficits. Acute Thrombotic Stroke: - CTA showed distal R ICA arterial thrombus w/ filling defect extending to R MANAGER EVENT. MRI confirmed infarct in R MANAGER EVENT. Patient has severe L-sided deficits and family desires hospice care. - Palliative care consult placed to assist with goals of care- after discussion family decided to make patient DNR. Family has decided to pursue comfort measures. Family would like to do senior living hospice. Per CM no NH referrals have been initiated as yet and will need to discuss with family again if no change in clinical status and requires NH placement with hospice care. - Will continue PRN tylenol & morphine for pain control but - Will consider d/c lovenox and ASA per family's wishes since they refused both yesterday. - Will continue neuro checks & fall precautions - Neurology consulted - agrees with current management. Appreciate recommendations. Indeterminate troponins, likely 2/2 demand ischemia: - EKG NSR, no ST changes - 0.137->0.127-> 0.134 HTN: - hold home BP med, permissive HTN period allowed CAD s/p stents: - Aware, but patient desires comfort measures only. No statin at this time. 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 Code status: DNAR PPx: Lovenox Dispo: pending placement for NH Hospice Addendum - Attending - Attending Attestation Date/Time: 03/23/18 5025 I personally evaluated the patient and discussed the management with Dr. Lala I agree with the History, Examination, Assessment and Plan documented above with any addition or exceptions noted below- Patient resting; occasionally moans. Afebrile VSS. A/P: 1) Ischemic CVA with left hemiplegia, expressive aphasia, dysphagia- continue ASA per rectum as patient is unsafe to eat. Plan of care discussed with daughters who request comfort care. Hospice consulted and plan for re-evaluation today. Possible NH placement with hospice versus inpatient hospice.
[2018-03-23] MEDS: Aspirin 300 MG Suppository PR SCH (09:11)
[2018-03-23] MEDS: Enoxaparin Sodium 40 MG/0.4 ML SYRINGE SC SCH (09:11)
[2018-03-23 12:02] VITALS: BP 167/85; TEMP 98.5
--- NOTE | 2018-03-24 11:47 | DIS ---
DATE OF ADMISSION: 03/20/2018 DATE OF DISCHARGE: 03/23/2018 RESIDENT: Dr. Belia Lala. ADMITTING ATTENDING: Dr. Manju Tillman. DISCHARGE ATTENDING: Dr. Eli Alonso. CONSULT: Urology, Dr. Augustus Magdaleno. PROCEDURES: 1. Brain CT on 03/19/2018, which showed no intracranial hemorrhage, but prominent small-vessel disease. 2. CTA of head and neck with and without contrast, which showed a filling defect consistent with arterial thrombus within the distal right internal carotid artery just proximal to the ICA terminus. This extends into the posterior communicating artery on the right as well. 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 Lastly, a nodule within the right lobe of the thyroid gland, for which followup thyroid ultrasound is advised, was noted. 3. Chest x-ray, which showed no acute findings. 4. Echocardiogram, which showed an estimated EF of 55% to 60% with grade 1/3 diastolic dysfunction as well as a small pericardial effusion without tamponade. 5. Brain MRI showed a moderate-sized acute right COCKTAIL SERVER distribution infarction as well as additional punctate foci of restricted diffusion, which may relate to tiny recent infarcts from hypoperfusion or embolic phenomenon. PRIMARY DIAGNOSES: 1. Acute thrombotic stroke. 2. Elevated troponin secondary to demand ischemia from uncontrolled hypertension. SECONDARY DIAGNOSES: 1. Hypertension. 2. History of alcohol abuse. 3. Dementia. 4. Blindness secondary to macular degeneration. 5. Coronary artery disease, status post stent placement. DISCHARGE MEDICATIONS: 1. Tylenol Extra Strength 500 mg tabs, 1000 mg p.o. every 6 hours p.r.n. for pain. 2. Aspirin 300 mg p.r. daily. 3. Haldol lactate 2 mg slow IV push every 4 hours p.r.n. DISCONTINUED MEDICATIONS: 1. Carvedilol 12.5 mg p.o. b.i.d. 2. Pravastatin 40 mg p.o. at bedtime. 3. Aspirin 81 mg daily. 4. Ferrous sulfate 325 mg p.o. daily. 5. Vitamin B12 of 5000 mcg p.o. daily. HOSPITAL COURSE: The patient is an 87-year-old female with past medical history significant for hypertension and coronary artery disease, status post stent placement, who presented to the emergency department via EMS with a chief complaint of sudden onset change in mental status with associated left-sided weakness. Upon arrival to the ED, the patient was noted to be aphasic and responded to some stimuli, but was not able to follow commands. Therefore, the history was obtained from the patient's daughter, who reported that throughout the day, the patient had sudden onset left-sided weakness and speech deficits, which began at approximately 2140 hours. On initial evaluation in the ED, the patient was noted to be hypertensive and tachycardic with a blood pressure of 163/98 and a heart rate of 106. However, due to the patient's dysphagia, she was given 300 mg of aspirin rectally and a workup was initiated for a suspected CVA. A brain CT was obtained, which showed no intracranial hemorrhage and this was followed by CTA of the head and neck with and without contrast, which did show a significant right-sided ICA thrombus that extended into the right COCKTAIL SERVER. The patient was therefore admitted to the Stroke Unit for close observation overnight and the Stroke Team including PT, OT, Speech Therapy, and Neurology were consulted to come and evaluate the patient. Physical Therapy noted that the patient was not safe to attempt any functional mobility due to significant left-sided deficits and recommended rehab versus longterm facility upon discharge. Speech Therapy was able to advance the patient's diet to puree and texture solids with extra gravy and sauce. The following morning, a brain MRI was obtained, which showed a moderate-sized acute right COCKTAIL SERVER distribution infarct with additional punctate foci, which were noted to possibly be secondary due to tiny recent infarcts from hyperperfusion or embolic phenomenon. On day 2 of hospitalization, Palliative Care met with the patient's family and it was decided that due to the patient's poor quality of the life recently that the patient's code status be confirmed as DNR and that Case Management assist the family in transferring the patient to an inpatient hospice facility and requested comfort care measures only for the remainder of her hospitalization. The next morning, Neurology, Dr. Augustus Magdaleno came and evaluated the patient and after noting the family's wishes, agreed with the current plan to remain off all medications except for Tylenol for pain control, aspirin per rectum, and Lovenox while in the hospital. By the date of discharge, the patient was re-evaluated by Hospice who determined that the patient did qualify for inpatient hospice care and arrangements were made to have the patient taken to [facility] for inpatient hospice care. Regarding the patient's elevated troponins, they down trended from 0.137 to 0.134 over the course of the patient's hospitalization and were therefore determined most likely to be secondary to demand ischemia from severely uncontrolled hypertension in the setting of an acute CVA. DISPOSITION: Stable. DISCHARGE INSTRUCTIONS: 1. Location: [facility]. 2. Diet: Regular diet with puree, thick textures, and extra gravy or sauce per recommendations of Speech Therapy. 3. Activity: Activity as tolerated. 4. Follow-up: The patient was transferred to an inpatient hospice facility, where she would get daily medical supervision as needed. Job ID: [id number] [id number]
== END 2018-03-23 17:04 | disposition hospice, inpatient (51) | DRG 65 ==
LOC: ERS 21:58 → 2SE 03-20 02:15
PROVIDERS: ADMIT Internal Medicine; ATTEND Internal Medicine
DX: I63.331 Cerebral infarction due to thrombosis of right posterior cerebral artery (principal); G81.94 Hemiplegia, unspecified affecting left nondominant side; I24.8 Other forms of acute ischemic heart disease; R47.01 Aphasia; Z66 Do not resuscitate; Z51.5 Encounter for palliative care; E78.5 Hyperlipidemia, unspecified; R47.81 Slurred speech; R29.810 Facial weakness; G30.1 Alzheimer's disease with late onset; F02.80 Dementia in other diseases classified elsewhere, unspecified severity, without behavioral disturbance, psychotic disturbance, mood disturbance, and anxiety; I10 Essential (primary) hypertension; H35.30 Unspecified macular degeneration; I25.10 Atherosclerotic heart disease of native coronary artery without angina pectoris; F10.10 Alcohol abuse, uncomplicated; Z98.61 Coronary angioplasty status
CPT/HCPCS: 36415; 36416; 70450; 70496; 70498; 70551; 71045; 80048; 80053; 80061; 82550; 82553; 84484; 85025; 85610; 85730; 93005; 93306; J1650; Q9966